=== PATIENT | female | born 1970 | race Caucasian/White ===

== ENCOUNTER 2022-05-17 23:18 | Emergency (ER) | payer BC, SELFPAY ==
[2022-05-17 23:28] VITALS: BP 170/75; PULSE 88; RESP 18; TEMP 36.5; O2SAT 97
--- NOTE | 2022-05-17 23:33 | ED.GENADULT ---
HPI - General Adult General Time Seen by Provider: 23:33 <Diane Anthony MD - Last Filed: 05/19/22 13:02> Date Seen: 05/17/22 <Diane Anthony MD - Last Filed: 05/19/22 13:02> Chief complaint: Unspecified Complaint, Adult <Diane Anthony MD - Last Filed: 05/19/22 13:02> Stated complaint: Heart Flutters <Diane Anthony MD - Last Filed: 05/19/22 13:02> Time Seen by Provider: 05/17/22 23:33 <Diane Anthony MD - Last Filed: 05/19/22 13:02> Source: patient and RN notes reviewed <Diane Anthony MD - Last Filed: 05/19/22 13:02> Mode of arrival: ambulatory <Diane Anthony MD - Last Filed: 05/19/22 13:02> Limitations: no limitations <Diane Anthony MD - Last Filed: 05/19/22 13:02> History of Present Illness HPI narrative: Patient is a 51-year-old female that is coming in with sense of flip-flopping or irregular beat this is been happening and gives her a funny sensation in her chest. It is not pain. Symptoms started up about 530-6 tonight and have been present since that time. She has had intermittent episodes over the last week. She is not exercising. Has no new medications. Maybe drinks 1 caffeinated beverage a day in the morning with T your diet Mountain Dew. She admits she has been trying to cut down on her caffeine. She had her physical in November, triglycerides were maybe a little bit up but blood pressure in other labs were fine. She has never had any prior cardiac history, is not felt like this before. Her dad has atrial fibrillation. Otherwise no known cardiac disease in the family beyond this. No recent illness. Last COVID illness was last July. She rarely drinks alcohol. 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 <Diane Anthony MD - Last Filed: 05/19/22 13:02> Related Data Home medications: Previous Rx's Medication Instructions Recorded metoprolol succinate 25 mg 12.5 mg PO DAILY #30 tabs 05/18/22 tablet,extended release 24 hr <Diane Anthony MD - Last Filed: 05/19/22 13:02> Allergies/adverse reactions: Allergies Allergy/AdvReac Type Severity Reaction Status Date / Time No Known Drug Allergies Allergy Verified 05/17/22 23:31 <Diane Anthony MD - Last Filed: 05/19/22 13:02> Review of Systems Status of ROS: Reports: 10 or more systems reviewed and unremarkable except as noted in History and below <Diane Anthony MD - Last Filed: 05/19/22 13:02> PFSH PFS Social History: Social History Smoking Status: Never smoker Do you use any of these nicotine containing products: None How often do you have a drink containing alcohol: never AUDIT-C Alcohol total score: 0 Non-prescribed substance use: denies use <Diane Anthony MD - Last Filed: 05/19/22 13:02> Exam Const: Vital Signs, click to edit/add: Vital Signs - 24 hr 05/17/22 23:28 05/17/22 23:43 05/18/22 00:05 Temperature 97.7 F Pulse Rate Pulse Rate [Left P ulse Oximeter] 88 80 Respiratory Rate 18 18 Blood Pressure [Le ft Upper Arm] 170/75 H 151/76 H Pulse Oximetry 97 96 96 Oxygen Delivery Me thod Room Air Room Air 05/18/22 00:06 Temperature Pulse Rate 75 Pulse Rate [Left P ulse Oximeter] Respiratory Rate Blood Pressure [Le ft Upper Arm] Pulse Oximetry 96 Oxygen Delivery Me thod <Diane Anthony MD - Last Filed: 05/19/22 13:02> Vital Signs, click to edit/add: Vital Signs - 24 hr 05/17/22 23:28 05/17/22 23:43 05/18/22 00:05 Temperature 97.7 F Pulse Rate Pulse Rate [Left P ulse Oximeter] 88 80 Respiratory Rate 18 18 Blood Pressure [Le ft Upper Arm] 170/75 H 151/76 H Pulse Oximetry 97 96 96 Oxygen Delivery Me thod Room Air Room Air 05/18/22 00:06 Temperature Pulse Rate 75 Pulse Rate [Left P ulse Oximeter] Respiratory Rate Blood Pressure [Le ft Upper Arm] Pulse Oximetry 96 Oxygen Delivery Me thod <Aylin Chiang MD - Last Filed: 05/18/22 00:30> Documenting provider has reviewed patient's vital signs: yes <Diane Anthony MD - Last Filed: 05/19/22 13:02> Common normals: no apparent distress, oriented x3, no limitations, healthy appearing, alert and well nourished <Diane Anthony MD - Last Filed: 05/19/22 13:02> General appearance: cooperative, comfortable, well kempt and well developed <Diane Anthony MD - Last Filed: 05/19/22 13:02> Nutritional appearance: overweight <Diane Anthony MD - Last Filed: 05/19/22 13:02> HENMT: Common normals: normocephalic, head/scalp atraumatic and hearing grossly normal bilaterally <Diane Anthony MD - Last Filed: 05/19/22 13:02> Head and scalp: normocephalic and atraumatic <Diane Anthony MD - Last Filed: 05/19/22 13:02> Eye: Common normals: PERRL, EOMs intact bilaterally, conjunctivae normal and no scleral icterus <Diane Anthony MD - Last Filed: 05/19/22 13:02> Conjunctiva: conjunctiva(e) normal <Diane Anthony MD - Last Filed: 05/19/22 13:02> Pupil: PERRL <Diane Anthony MD - Last Filed: 05/19/22 13:02> Neck & C-Spine: Common normals: full ROM, no lymphadenopathy, supple and thyroid normal <Diane Anthony MD - Last Filed: 05/19/22 13:02> Thyroid: thyroid normal <Diane Anthony MD - Last Filed: 05/19/22 13:02> Resp: Common normals: normal respiratory effort, no retractions, no use of accessory muscles and clear to auscultation bilaterally <Diane Anthony MD - Last Filed: 05/19/22 13:02> Auscultation: clear to auscultation bilaterally <Diane Anthony MD - Last Filed: 05/19/22 13:02> Cardio: Common normals: regular rate, regular rhythm, S1 normal heart sound, S2 normal heart sound, no gallops and no clicks <Diane Anthony MD - Last Filed: 05/19/22 13:02> Rate: regular rate <Diane Anthony MD - Last Filed: 05/19/22 13:02> Rhythm: regular rhythm <Diane Anthony MD - Last Filed: 05/19/22 13:02> Heart sounds: S1 normal and S2 normal <Diane Anthony MD - Last Filed: 05/19/22 13:02> GI: Common normals: Normal to inspection, nondistended, normoactive bowel sounds present, soft to palpation, non-tender, no hepatosplenomegaly and no masses <Diane Anthony MD - Last Filed: 05/19/22 13:02> Palpation: soft and no hepatosplenomegaly <Diane Anthony MD - Last Filed: 05/19/22 13:02> Extremity: Other: No lower extremity edema <Diane Anthony MD - Last Filed: 05/19/22 13:02> Neuro: Common normals: oriented x3 <Diane Anthony MD - Last Filed: 05/19/22 13:02> Sensorium/orientation: alert <Diane Anthony MD - Last Filed: 05/19/22 13:02> Psych: Appearance: well kempt <Diane Anthony MD - Last Filed: 05/19/22 13:02> Course Course Hospital Course: EKG captured PVCs but as I was talking to patient and watching the monitor, did not see many PVCs. Reviewed that this typically is a benign finding. Would recommend that we check electrolytes and a CBC to ensure hemoglobin normal. Her blood pressure is elevated here but we did discuss that that frequently happens emergency room situations as patient's are stressed. Would not act on her blood pressure being elevated here but certainly would recommend ongoing follow-up outpatient with her primary care provider just to ensure that this is an starting to elevate. <Diane Anthony MD - Last Filed: 05/19/22 13:02> Vital Signs Vital signs: Initial Vital Signs Temperature 97.7 F 05/17/22 23:28 Temperature Source Temporal Artery Scan 05/17/22 23:28 Pulse Rate 88 05/17/22 23:28 Pulse Rhythm Regular 05/17/22 23:28 Respiratory Rate 18 05/17/22 23:28 Blood Pressure 170/75 H 05/17/22 23:28 Blood Pressure Mean 106 05/17/22 23:28 Blood Pressure Position Semi-Fowlers 05/17/22 23:28 Pulse Oximetry 97 05/17/22 23:28 Oxygen Delivery Method Room Air 05/17/22 23:28 Vital Signs Temperature 97.7 F 05/17/22 23:28 Pulse Rate 88 05/17/22 23:28 Respiratory Rate 18 05/17/22 23:28 Blood Pressure 170/75 H 05/17/22 23:28 Pulse Oximetry 97 05/17/22 23:28 Oxygen Delivery Method Room Air 05/17/22 23:28 Temperature 97.7 F 05/17/22 23:28 Pulse Rate 75 05/18/22 00:06 Respiratory Rate 18 05/18/22 00:05 Blood Pressure 151/76 H 05/18/22 00:05 Pulse Oximetry 96 05/18/22 00:06 Oxygen Delivery Method Room Air 05/18/22 00:05 <Diane Anthony MD - Last Filed: 05/19/22 13:02> Initial Vital Signs Temperature 97.7 F 05/17/22 23:28 Temperature Source Temporal Artery Scan 05/17/22 23:28 Pulse Rate 88 05/17/22 23:28 Pulse Rhythm Regular 05/17/22 23:28 Respiratory Rate 18 05/17/22 23:28 Blood Pressure 170/75 H 03/23/23 23:28 Blood Pressure Mean 106 05/17/22 23:28 Blood Pressure Position Semi-Fowlers 05/17/22 23:28 Pulse Oximetry 97 05/17/22 23:28 Oxygen Delivery Method Room Air 05/17/22 23:28 Vital Signs Temperature 97.7 F 05/17/22 23:28 Pulse Rate 88 05/17/22 23:28 Respiratory Rate 18 05/17/22 23:28 Blood Pressure 170/75 H 05/17/22 23:28 Pulse Oximetry 97 05/17/22 23:28 Oxygen Delivery Method Room Air 05/17/22 23:28 Temperature 97.7 F 05/17/22 23:28 Pulse Rate 75 05/18/22 00:06 Respiratory Rate 18 05/18/22 00:05 Blood Pressure 151/76 H 05/18/22 00:05 Pulse Oximetry 96 05/18/22 00:06 Oxygen Delivery Method Room Air 05/18/22 00:05 <Aylin Chiang MD - Last Filed: 05/18/22 00:30> Medical Decision Making Lab Data Lab results reviewed: Yes I reviewed the patient's lab results <Diane Anthony MD - Last Filed: 05/19/22 13:02> Lab results narrative: Mild leukocytosis of undetermined clinical significance. No reported fevers or symptoms of acute illness <Aylin Chiang MD - Last Filed: 05/18/22 00:30> Labs: Lab Results 05/17/22 05/17/22 Range/Units 23:43 23:50 WBC 15.03 H (4.50-11.00) K/uL RBC 4.70 (4.00-5.20) m/uL Hgb 13.7 (12.0-16.0) gm/dL Hct 42.0 (33.0-51.0) % MCV 89 (80-100) fL MCH 29 (26-34) pg MCHC 33 (32-36) gm/dL RDW Coeff of Suzanne 12.8 (11.5-15.5) % Plt Count 275 (140-440) K/uL Neut % (Auto) 72.7 H (42.0-72.0) % Lymph % (Auto) 22.1 (20-44) % [place] % (Auto) 4.2 (0.0-11.0) % Eos % (Auto) 0.6 (0.0-7.0) % Baso % (Auto) 0.3 (0.0-3.0) % Neut # (Auto) 10.90 H (1.7-7.0) K/uL Lymph # (Auto) 3.30 H (0.90-2.90) K/uL [place] # (Auto) 0.60 (0.00-0.90) K/UL Eos # (Auto) 0.10 (0.00-0.50) K/uL Baso # (Auto) 0.00 (0.00-0.30) K/uL Sodium 140 (135-149) mmol/L Potassium 4.0 (3.6-5.1) mmol/L Chloride 110 (96-114) mmol/L Carbon Dioxide 22 (20-32) mmol/L BUN 14 (5-24) mg/dL Creatinine 0.7 (0.5-1.5) mg/dL Estimated GFR 106 ml/min Glucose 103 (60-115) mg/dL Calcium 9.2 (8.4-10.6) mg/dL Magnesium 1.8 (1.5-2.6) mg/dL POC Troponin I 0.00 L (0.01-0.04) ng/ml <Diane Anthony MD - Last Filed: 05/19/22 13:02> Lab Results 05/17/22 05/17/22 Range/Units 23:43 23:50 WBC 15.03 H (4.50-11.00) K/uL RBC 4.70 (4.00-5.20) m/uL Hgb 13.7 (12.0-16.0) gm/dL Hct 42.0 (33.0-51.0) % MCV 89 (80-100) fL MCH 29 (26-34) pg MCHC 33 (32-36) gm/dL RDW Coeff of Suzanne 12.8 (11.5-15.5) % Plt Count 275 (140-440) K/uL Neut % (Auto) 72.7 H (42.0-72.0) % Lymph % (Auto) 22.1 (20-44) % [place] % (Auto) 4.2 (0.0-11.0) % Eos % (Auto) 0.6 (0.0-7.0) % Baso % (Auto) 0.3 (0.0-3.0) % Neut # (Auto) 10.90 H (1.7-7.0) K/uL Lymph # (Auto) 3.30 H (0.90-2.90) K/uL [place] # (Auto) 0.60 (0.00-0.90) K/UL Eos # (Auto) 0.10 (0.00-0.50) K/uL Baso # (Auto) 0.00 (0.00-0.30) K/uL Sodium 140 (135-149) mmol/L Potassium 4.0 (3.6-5.1) mmol/L Chloride 110 (96-114) mmol/L Carbon Dioxide 22 (20-32) mmol/L BUN 14 (5-24) mg/dL Creatinine 0.7 (0.5-1.5) mg/dL Estimated GFR 106 ml/min Glucose 103 (60-115) mg/dL Calcium 9.2 (8.4-10.6) mg/dL Magnesium 1.8 (1.5-2.6) mg/dL POC Troponin I 0.00 L (0.01-0.04) ng/ml <Aylin Chiang MD - Last Filed: 05/18/22 00:30> Imaging Data Chest x-ray: Attestation: I have reviewed the pertinent imaging results. <Aylin Chiang MD - Last Filed: 05/18/22 00:30> My impression: mild perihilar infiltrates suggestive of mild pulmonary edema <Aylin Chiang MD - Last Filed: 05/18/22 00:30> Radiologist's impression: IMPRESSION: 1. Mild perihilar ground-glass opacities are suspected and clinical correlation is recommended to exclude mild pulmonary edema. <Aylin Chiang MD - Last Filed: 05/18/22 00:30> ECG Data Attestation: I personally reviewed and interpreted this ECG as follows: (Sinus rhythm, 79 beats per minute, frequent PVCs. QT corrected 440 milliseconds. No ischemic change noted.) <Diane Anthony MD - Last Filed: 05/19/22 13:02> Prior ECG tracings: not available for review <Diane Anthony MD - Last Filed: 05/19/22 13:02> Critical Care Time Critical Care Time Critical Care Time: No <Diane Anthony MD - Last Filed: 05/19/22 13:02> Discharge Plan Discharge Clinical Impression: Premature ventricular contractions <Diane Anthony MD - Last Filed: 05/19/22 13:02> Patient Disposition: Home, Self-Care <Diane Anthony MD - Last Filed: 05/19/22 13:02> Condition: Stable <Diane Anthony MD - Last Filed: 05/19/22 13:02> Instructions: Premature Ventricular Contractions (ED) <Diane Anthony MD - Last Filed: 05/19/22 13:02> Additional Instructions: Schedule follow-up with your primary care provider as soon as possible. Do recommend having an echo done as well as a 48 hour Holter monitor. If there is any evidence of any structural issues on the echo or if the PVC burden is greater than 15% on the monitoring, referral to specialist in cardiology is warranted, electrophysiology. Once you have these tests done and if you are still symptomatic with the PVCs, can try metoprolol as this can suppress these. Sometimes, these types of irregular heartbeats can be associated with sleep apnea. There may be changes on your echo that give additional clues to this. Having a sleep study done may also be revealing. <Diane Anthony MD - Last Filed: 05/19/22 13:02> Activity Level: Activity as Tolerated <Diane Anthony MD - Last Filed: 05/19/22 13:02> Activity as Tolerated <Aylin Chiang MD - Last Filed: 05/18/22 00:30> Prescriptions: New metoprolol succinate 25 mg tablet extended release 24 hr 12.5 mg PO DAILY Qty: 30 0RF <Diane Anthony MD - Last Filed: 05/19/22 13:02> Follow Up/Referrals: Provider,Not a Local [Primary Care Provider] - <Diane Anthony MD - Last Filed: 05/19/22 13:02> Stand Alone Forms: MyHealth Info Instructions <Diane Anthony MD - Last Filed: 05/19/22 13:02>
--- NOTE | 2022-05-17 23:41 | CRLHL7_ITS ---
For Patients: As a result of the Century Cures Act, medical imaging exams and procedure reports are released immediately into your electronic medical record. You may view this report before your referring provider. If you have questions, please contact your health care provider. INDICATION: Chest palpitations TECHNIQUE: Chest radiograph 1 view COMPARISON: None FINDINGS: The sensitivity and specificity of the exam are severely limited by the patient`s body habitus. Mediastinum: The mediastinum is normal in appearance. The heart silhouette is normal in size and morphology. Lung: Mild perihilar ground-glass opacities are suspected and clinical correlation is recommended to exclude mild pulmonary edema. No sign of pleural effusion seen. No pneumothorax is identified. Bone and Soft tissue: Unremarkable for age. IMPRESSION: 1. Mild perihilar ground-glass opacities are suspected and clinical correlation is recommended to exclude mild pulmonary edema. Dictated by Mina Stephenson MD @ 05/18/2022 12:09:36 AM Dictated by: Mina Stephenson MD @ 05/18/2022 00:09:41 (Electronically Signed)
[2022-05-17 23:43] VITALS: O2SAT 96
[2022-05-18 00:05] VITALS: BP 151/76; PULSE 80; RESP 18; O2SAT 96
[2022-05-18 00:06] VITALS: PULSE 75; O2SAT 96
[2022-05-18 00:06] LABS: Basophils Percent Auto 0.3 % (0.0-3.0); Eosinophils Percent Auto 0.6 % (0.0-7.0); Hemoglobin* 13.7 gm/dL (12.0-16.0); Immature Granulocytes Pct Auto 0.1 %; Lymphocytes Percent Auto 22.1 % (20-44); Mean Corpuscular HGB Conc 33 gm/dL (32-36); Mean Corpuscular Hemoglobin 29 pg (26-34); Mean Corpuscular Volume 89 fL (80-100); Monocytes Percent Auto 4.2 % (0.0-11.0); Neutrophils Percent Auto 72.7 % (42.0-72.0); Platelet Count* 275 K/uL (140-440); RDW Coefficient of Variation % 12.8 % (11.5-15.5); White Blood Count* 15.03 K/uL (4.50-11.00)
[2022-05-18 00:09] LABS: Slide Review Reflex No
[2022-05-18 00:13] LABS: Chloride* 110 mmol/L (96-114); Sodium* 140 mmol/L (135-149)
[2022-05-18 00:15] LABS: Creatinine* 0.7 mg/dL (0.5-1.5); Estimated Glomerular Filt Rate 106 ml/min
[2022-05-18 00:16] LABS: Blood Urea Nitrogen* 14 mg/dL (5-24); Calcium* 9.2 mg/dL (8.4-10.6); Carbon Dioxide* 22 mmol/L (20-32); Glucose* 103 mg/dL (60-115); Magnesium* 1.8 mg/dL (1.5-2.6)
== END 2022-05-18 00:40 | disposition home or self-care (01) ==
PROVIDERS: Family Medicine; Emergency Provider Family Medicine
DX: I49.3 Ventricular premature depolarization (principal)
CPT/HCPCS: 36415; 71045; 80048; 83735; 84484; 85025; 93005; 94761; 99284; 99285